=== PATIENT | female | born 1945 | race Caucasian/White ===

== ENCOUNTER 2017-06-28 09:06 | Day surgery (SDC) | payer MEDICARE, BC ==
[~2017-06-28 09:06] MED LIST: KETOROLAC TROMETHAMINE 0.45% 4 DROP/0.4 ML DROPERETTE OS PRN
[2017-06-28] MEDS ORDERED: CHONDR SU A NA/HYALUR INTRAOC KIT (SURGICARE) ONE (09:27)
[2017-06-28] MEDS ORDERED: LIDOCAINE 1% INJ-PF (10 MG/ML) 30 ML SDV ONE (09:27)
[2017-06-28] MEDS ORDERED: EPINEPHRINE INJ/PF 1 MG/1 ML AMPULE ONE (09:27)
[2017-06-28] MEDS: CYCLOPENTOLATE 0.2%/PHENYLEPHRINE 1% OPH SOLN 2 ML OS PRN ×3 (09:39→09:59)
[2017-06-28] MEDS: TROPICAMIDE 1% OPH SOLN 3 ML OS PRN ×3 (09:39→09:59)
[2017-06-28] MEDS: BESIFLOXACIN HCL 0.6% OPH SUSP 5 ML BOTTLE OS PRN ×4 (09:39→10:45)
[2017-06-28] MEDS: TETRACAINE HCL 0.5% OPH SOLN 2 ML OS PRN ×3 (09:40→10:15)
[2017-06-28] MEDS ORDERED: ALBUTEROL SULFATE 0.083% NEB 2.5 MG/3 ML AMPUL NEB ONE (09:42)
[2017-06-28] MEDS ORDERED: MIDAZOLAM 2 MG/2 ML INJ ONE (09:51)
--- NOTE | 2017-06-28 21:33 | [facility] OPERATIVE REPORT E ---
[facility] Operative Report NAME: SARABJIT HARTMANN AGE: 72Y DATE OF SURGERY: 06/28/2017 ROOM: PREOPERATIVE DIAGNOSIS: CATARACT, LEFT EYE. POSTOPERATIVE DIAGNOSIS: CATARACT, LEFT EYE. OPERATION: Cataract extraction with intraocular lens implant of the left eye. SURGEON: CALDERON ANTHONY M.D. ANESTHESIA: Topical. PROCEDURE: After obtaining appropriate consent, the patient's left eye was prepped and draped in sterile fashion as well as the surgeon in a sterile manner and cataract surgery was started. First a paracentesis blade was used to make a small side-port incision. Viscoelastic was used to inflate the anterior chamber. Next a 2.4 mm incision was made with the paracentesis blade. A continuous capsulorrhexis incision was made using a cystotome and Utrata forceps. Following this hydrodissection was carried out to make the lens fully loose and mobile and it was rotated 90 degrees. Following this, a rrffmn-sxl-xcpzuex technique was used to phacoemulsify the lens with a CDE of 7.33. The remaining cortex was removed with irrigation/aspiration. Provisc was instilled into the capsular bag to inflate the bag. A SN60WF, 19.5 diopter lens was placed. The remaining viscoelastic material was removed with irrigation/aspiration. Following this, a 10-0 nylon suture was used to close the incision and it was found to be watertight. Vigamox was instilled in the eye and a protective shield was placed over the eye. The patient returned to the postoperative recovery in stable condition. DICTATING PHYSICIAN: CALDERON ANTHONY M.D. [id number] PHY#: [id number] ID: [id number] JOB#: [id number] ACCT: [id number] cc:CALDERON ANTHONY M.D. >
--- NOTE | 2017-06-28 21:38 | DISCHARGE SUMMARY E ---
Discharge Summary NAME: SARABJIT HARTMANN : 1945 AGE: 72Y ADMITTED: 06/28/2017 DISCHARGED: HOSPITAL COURSE: This is a 72-year-old patient who underwent cataract extraction of the left eye. DIAGNOSIS: Cataract, left eye. The patient underwent surgery because she was having difficulty seeing road signs and words on the TV. DISCHARGE INSTRUCTIONS: The patient is to be on a regular diet. No bending at the waist, no heavy lifting. The patient should use the Besivance, Ilevro, and Durezol at 3 p.m. and 8 p.m. and sleep with a rigid shield. I will see the patient for a 1 day postoperative tomorrow. DICTATING PHYSICIAN: CALDERON ANTHONY M.D. [id number] PHY#: [id number] ID: [id number] JOB#: [id number] ACCT: [id number] cc:CALDERON ANTHONY M.D. >
== END 2017-06-28 11:30 | disposition home or self-care (01) ==
LOC: SC 09:06
PROVIDERS: ATTEND Internal Medicine
PROC: 08RK3JZ Replacement of Left Lens with Synthetic Substitute, Percutaneous Approach (ICD-10-PCS; principal; 2017-06-28 10:30)
DX: H25.13 Age-related nuclear cataract, bilateral (principal); E07.9 Disorder of thyroid, unspecified; Z79.899 Other long term (current) drug therapy; I10 Essential (primary) hypertension; Z79.82 Long term (current) use of aspirin
CPT/HCPCS: 66984; V2632; J2250; J3490 ×2; A9270 ×2; J0171; 142

== ENCOUNTER 2017-07-24 07:02 | Day surgery (SDC) | payer MEDICARE, BC ==
[~2017-07-24 07:02] MED LIST changes: +KETOROLAC TROMETHAMINE 0.45% 4 DROP/0.4 ML DROPERETTE OD PRN; -KETOROLAC TROMETHAMINE 0.45% 4 DROP/0.4 ML DROPERETTE OS PRN
[2017-07-24] MEDS ORDERED: EPINEPHRINE INJ/PF 1 MG/1 ML AMPULE ONE (07:37)
[2017-07-24] MEDS ORDERED: CHONDR SU A NA/HYALUR INTRAOC KIT (SURGICARE) ONE (07:37)
[2017-07-24] MEDS ORDERED: LIDOCAINE 1% INJ-PF (10 MG/ML) 30 ML SDV ONE (07:37)
[2017-07-24] MEDS: CYCLOPENTOLATE 0.2%/PHENYLEPHRINE 1% OPH SOLN 2 ML OD PRN ×3 (07:39→08:11)
[2017-07-24] MEDS: TROPICAMIDE 1% OPH SOLN 3 ML OD PRN ×3 (07:39→08:11)
[2017-07-24] MEDS: BESIFLOXACIN HCL 0.6% OPH SUSP 5 ML BOTTLE OD PRN ×3 (07:40→09:21)
[2017-07-24] MEDS: TETRACAINE HCL 0.5% OPH SOLN 2 ML OD PRN ×3 (07:41→08:45)
[2017-07-24] MEDS ORDERED: MIDAZOLAM 2 MG/2 ML INJ ONE ×2 (08:16→09:06)
[2017-07-24] MEDS ORDERED: FENTANYL CITRATE INJ/PF 100 MCG/2 ML AMPUL ONE (08:16)
--- NOTE | 2017-07-24 13:49 | [facility] OPERATIVE REPORT E ---
[facility] Operative Report NAME: SARABJIT HARTMANN AGE: 72Y DATE OF SURGERY: 07/24/2017 ROOM: PREOPERATIVE DIAGNOSIS: CATARACT, RIGHT EYE. POSTOPERATIVE DIAGNOSIS: CATARACT, RIGHT EYE. OPERATION: Cataract extraction with intraocular lens implant of the right eye. SURGEON: CALDERON ANTHONY M.D. ANESTHESIA: Topical. PROCEDURE: After obtaining appropriate consent, the patient's right eye was prepped and draped in sterile fashion as well as the surgeon in a sterile manner and cataract surgery was started. First a paracentesis blade was used to make a small side-port incision. Viscoelastic was used to inflate the anterior chamber. Next a 2.4 mm incision was made with the paracentesis blade. A continuous capsulorrhexis incision was made using a cystotome and Utrata forceps. Following this hydrodissection was carried out to make the lens fully loose and mobile and it was rotated 90 degrees. Following this, a nypkno-soc-olsfdyy technique was used to phacoemulsify the lens with a CDE of 7.52. The remaining cortex was removed with irrigation/aspiration. Provisc was instilled into the capsular bag to inflate the bag. A SN60WF, 19.0 diopter lens was placed. The remaining viscoelastic material was removed with irrigation/aspiration. Following this, a 10-0 nylon suture was used to close the incision and it was found to be watertight. Vigamox was instilled in the eye and a protective shield was placed over the eye. The patient returned to the postoperative recovery in stable condition. DICTATING PHYSICIAN: CALDERON ANTHONY M.D. 1209M [id number] PHY#: [id number] ID: [id number] JOB#: [id number] ACCT: [id number] cc:CALDERON ANTHONY M.D. >
--- NOTE | 2017-07-24 13:50 | [facility] DISCHARGE SUMMARY E ---
[facility] Discharge Summary NAME: SARABJIT HARTMANN AGE: 72Y ADMITTED: 07/24/2017 DISCHARGED: 07/24/2017 DIAGNOSIS: CATARACT, RIGHT EYE. SUMMARY: This is a 72-year-old female who underwent cataract extraction of the right eye. She underwent surgery because she was having trouble seeing words on the television. She should be on a regular diet, no bending at her waist, and no heavy lifting. She should use her Besivance, Ilevro and Durezol at 3 p.m. and 8 p.m. and sleep with a rigid shield. I will see her for her 1 day postoperative tomorrow. DICTATING PHYSICIAN: CALDERON ANTHONY M.D. [id number] PHY#: [id number] ID: [id number] JOB#: [id number] ACCT: [id number] cc:CALDERON ANTHONY M.D. >
== END 2017-07-24 10:03 | disposition home or self-care (01) ==
LOC: SC 07:02
PROVIDERS: ATTEND Internal Medicine
PROC: 08RJ3JZ Replacement of Right Lens with Synthetic Substitute, Percutaneous Approach (ICD-10-PCS; principal; 2017-07-24 08:30)
DX: H25.11 Age-related nuclear cataract, right eye (principal); Z96.1 Presence of intraocular lens; H40.89 Other specified glaucoma; I10 Essential (primary) hypertension; R00.0 Tachycardia, unspecified; E07.9 Disorder of thyroid, unspecified; Z79.82 Long term (current) use of aspirin; Z79.899 Other long term (current) drug therapy
CPT/HCPCS: 66984; V2632; J2250; J3490 ×2; A9270; J0171; J3010; 142

== ENCOUNTER 2017-08-28 14:43 | Inpatient (IN) | payer MEDICARE, BC ==
[2017-08-28 15:04] LABS: ABSOLUTE BASOPHILS # (AUTO) 0.1 10^3/uL (0.0-0.2); ABSOLUTE EOSINOPHILS # (AUTO) 0.1 10^3/uL (0.0-0.6); ABSOLUTE LYMPHOCYTES (AUTO) 1.8 10^3/uL (0.5-4.7); ABSOLUTE MONOCYTES (AUTO) 0.6 10^3/uL (0.1-1.4); ABSOLUTE NEUT (AUTO) 6.6 10^3/uL (1.7-8.2); BASOPHILS % (AUTO) 0.8 % (0-2); EOSINOPHILS % (AUTO) 0.9 % (0-6); HEMATOCRIT 39.3 % (36.0-47.0); HEMOGLOBIN 13.5 g/dL (12.0-15.5); LYMPHOCYTES % (AUTO) 19.6 % (13-45); MEAN CORPUSCULAR HEMOGLOBIN 31.9 pg (27.0-33.4); MEAN CORPUSCULAR HGB CONC 34.4 g/dL (32.0-36.0); MEAN CORPUSCULAR VOLUME 93 fl (80-97); MONOCYTES % (AUTO) 6.9 % (3-13); PLATELET COUNT 201 10^3/uL (150-450); RED BLOOD COUNT 4.24 10^6/uL (3.72-5.28); RED CELL DISTRIBUTION WIDTH 13.6 % (11.5-14.0); SEGMENTED NEUTROPHILS % (AUTO) 71.8 % (42-78); TOTAL CELLS COUNTED % (AUTO) 100 %; WHITE BLOOD COUNT 9.2 10^3/uL (4.0-10.5)
[2017-08-28] MEDS ORDERED: NORMAL SALINE 500 ML IV ONE (15:08)
[2017-08-28 15:17] LABS: ALANINE AMINOTRANSFERASE 22 U/L (9-52); ALBUMIN 3.9 g/dL (3.5-5.0); ALKALINE PHOSPHATASE 71 U/L (38-126); ANION GAP 16 (5-19); ASPARTATE AMINO TRANSFERASE 41 U/L (14-36); BILIRUBIN,DIRECT 0.3 mg/dL (0.0-0.4); BILIRUBIN,TOTAL 0.7 mg/dL (0.2-1.3); BLOOD UREA NITROGEN 11 mg/dL (7-20); CALCIUM 8.8 mg/dL (8.4-10.2); CARBON DIOXIDE 21 mmol/L (22-30); CHLORIDE 107 mmol/L (98-107); CREATINE KINASE 57 U/L (30-135); GLUCOSE 124 mg/dL (75-110); POTASSIUM 4.1 mmol/L (3.6-5.0); SODIUM 143.6 mmol/L (137-145)
--- NOTE | 2017-08-28 15:17 | RADIOLOGY REPORT (SQ) ---
EXAM DESCRIPTION: CHEST SINGLE VIEW COMPLETED DATE/TIME: 08/28/2017 3:08 pm REASON FOR STUDY: cp COMPARISON: CT chest 01/15/2015 EXAM PARAMETERS: NUMBER OF VIEWS: One view. TECHNIQUE: Single frontal radiographic view of the chest acquired. RADIATION DOSE: NA LIMITATIONS: None. FINDINGS: LUNGS AND PLEURA: Pulmonary vascular congestion with diffuse Agnes lines from interstitia l edema. No pleural effusion. No pneumothorax. No dense consolidation worrisome for pneumonia. MEDIASTINUM AND HILAR STRUCTURES: No masses. Contour normal. HEART AND VASCULAR STRUCTURES: Mild cardiomegaly BONES: No acute findings. HARDWARE: None in the chest. OTHER: No other significant finding. IMPRESSION: Interstitial pulmonary edema TECHNICAL DOCUMENTATION: JOB ID: [id number] [employer]- All Rights Reserved Reading location - IP/workstation name: [email or web address]
[2017-08-28] MEDS ORDERED: FENTANYL CITRATE INJ/PF 100 MCG/2 ML AMPUL IV ONE (15:18)
[2017-08-28] MEDS ORDERED: MIDAZOLAM 2 MG/2 ML INJ IV ONE (15:18)
[2017-08-28] MEDS ORDERED: FUROSEMIDE INJ/PF 40 MG/4 ML SDV IV ONE (15:24)
[2017-08-28 15:28] LABS: CREATINE KINASE MB 1.61 ng/mL (<4.55)
--- NOTE | 2017-08-28 15:29 | ER Document Report ---
ED Cardiac - General Chief Complaint: Irregular Pulse Stated Complaint: HEART PALPITATIONS Time Seen by Provider: 08/28/17 15:06 Notes: The patient is a 72-year-old female, past medical history A. fib, hypothyroidism , presents with 2 hours of feeling her heart racing with some shortness of breath. She started to have a wet cough while in the ambulance. EMS provided her with 10 mg Cardizem and her heart rate dropped from 130-180's to 110-150's. Patient takes 25 mg metoprolol daily. She denies chest pain, leg swelling, syncope, nausea, vomiting, back pain, abdominal pain, fevers or hemoptysis. TRAVEL OUTSIDE OF THE [place] IN LAST 30 DAYS: No - Related Data Allergies/Adverse Reactions: No Known Allergies Allergy (Verified 08/28/17 15:12) Past Medical History - General Information source: Patient - Social History Smoking Status: Never Smoker Frequency of alcohol use: None Drug Abuse: None Family History: Reviewed & Not Pertinent Patient has suicidal ideation: No Patient has homicidal ideation: No - Past Medical History Cardiac Medical History: Reports: Hx Atrial Fibrillation Denies: Hx Coronary Artery Disease, Hx Heart Attack, Hx Hypertension Pulmonary Medical History: Denies: Hx Asthma, Hx Bronchitis, Hx COPD, Hx Pneumonia Neurological Medical History: Denies: Hx Cerebrovascular Accident, Hx Seizures Renal/ Medical History: Denies: Hx Peritoneal Dialysis GI Medical History: Denies: Hx Hepatitis, Hx Hiatal Hernia, Hx Ulcer Musculoskeltal Medical History: Denies Hx Arthritis Infectious Medical History: Denies: Hx Hepatitis Past Surgical History: Denies: Hx Hysterectomy, Hx Mastectomy, Hx Open Heart Surgery, Hx Pacemaker - Immunizations Immunizations up to date: Yes Hx Diphtheria, Pertussis, Tetanus Vaccination: Yes - unsure Review of Systems - Review of Systems Notes: REVIEW OF SYSTEMS: CONSTITUTIONAL: -fevers, -chills EENT: -eye pain, -difficulty swallowing, -nasal congestion CARDIOVASCULAR: -chest pain, -syncope, +palpitations RESPIRATORY: -cough, +SOB GASTROINTESTINAL: -abdominal pain, -nausea, -vomiting, -diarrhea GENITOURINARY: -dysuria, -hematuria MUSCULOSKELETAL: -back pain, -neck pain SKIN: -rash or skin lesions. HEMATOLOGIC: -easy bruising or bleeding. LYMPHATIC: -swollen, enlarged glands. NEUROLOGICAL: -altered mental status or loss of consciousness, -headache, - neurologic symptoms PSYCHIATRIC: -anxiety, -depression. ALL OTHER SYSTEMS REVIEWED AND NEGATIVE. Physical Exam - Vital signs Vitals: Pulse Ox 95 08/28/17 14:44 - Notes Notes: PHYSICAL EXAMINATION: GENERAL: Well-appearing, well-nourished and in no acute distress. HEAD: Atraumatic, normocephalic. EYES: Pupils equal round and reactive to light, extraocular movements intact, sclera anicteric, conjunctiva are normal. ENT: nares patent, oropharynx clear without exudates. Moist mucous membranes. NECK: Normal range of motion, supple without lymphadenopathy LUNGS: Mild tachypnea. Diffuse rales. HEART: Irregularly irregular rhythm. ABDOMEN: Soft, nontender, normoactive bowel sounds. No guarding, no rebound. No masses appreciated. EXTREMITIES: Normal range of motion, no pitting or edema. No cyanosis. NEUROLOGICAL: Cranial nerves grossly intact. Normal speech, normal gait. Normal sensory and motor exams. PSYCH: Normal mood, normal affect. SKIN: Warm, Dry, normal turgor, no rashes or lesions noted. Course - Re-evaluation Re-evalutation: Pt seen and found to be in A fib w/ RVR. She was slightly hypotensive (90's/50's ) and has evidence of heart failure with pulmonary vascular congestion (no history of CHF). Due to her hypotension and pulmonary vascular congestion with 2 hours of A fib w/ RVR, she was verbally consented for cardioversion. She was successfully synchronized cardioverted with 120 J into normal sinus rhythm and her blood pressure increased and heart rate was in the 60s-80s. Patient is not on any blood thinners. Her CHADs2-Vasc score is 2, which indicates a 2.2% of a yearly stroke. Pt satting 90% on room air, which increased to 100% on 2L oxygen (not on any oxygen at home). Pt also mildly hyperthyroid and she takes Synthroid. This should probably be decreased. Patient's first troponin is 0.05 , nut the patient is not having any chest pain and suspect this is demand ischemia from her rapid A. fib. No STEMI on EKG. Will continue to monitor. Patient requires admission due to the flash pulmonary edema, hypoxia and further evaluation and treatment of her A. fib and decision to anticoagulate. 08/28/17 16:[address] Shayna Ann (Hospitalist) and she has accepted patient to [facility] as Inpatient. - Vital Signs Vital signs: Temp Pulse Resp BP Pulse Ox 97.9 F 88 24 H 97/57 L 96 08/28/17 22:47 08/28/17 22:47 08/28/17 23:01 08/28/17 23:00 08/28/17 23:01 - Laboratory Result Diagrams: 08/28/17 14:52 08/28/17 14:52 Laboratory results interpreted by me: 08/28/17 08/28/17 08/28/17 14:52 14:52 14:52 Carbon Dioxide 21 L Glucose 124 H AST 41 H NT-Pro-B Natriuret Pep 1920 H Free T3 pg/mL 6.13 H - Diagnostic Test Radiology reviewed: Image reviewed, Reports reviewed Radiology results interpreted by me: CXR: Pulmonary vascular congestion - EKG Interpretation by Me Rate: Tachycardia Rhythm: A.Fib Voltage: Consistant with LVH When compared to previous EKG there are: Previous EKG unavailable Procedures - Additional Procedures Cardioversion/Defib Time performed: 15:35 Additional Procedures: Cardioversion/defib Notes: After verbal consent obtained from patient, she was sedated with Versed and fentanyl. Patient was synchronized cardioverted with 120 J with conversion of A fib. w/ RVR to NSR. Critical Care Note - Critical Care Note Total time excluding time spent on procedures (mins): 35 Discharge - Discharge Clinical Impression: Atrial fibrillation with RVR, Hypoxia Pulmonary edema Qualifiers: Chronicity: acute Qualified Code(s): J81.0 - Acute pulmonary edema Condition: Stable Disposition: ADMITTED INPATIENT Admitting Provider: Hospitalist - Marissa Unit Admitted: [facility]
[2017-08-28 15:38] LABS: TROPONIN I 0.053 ng/mL
[2017-08-28] MEDS ORDERED: ASPIRIN 325 MG TABLET PO ONE (15:42)
[2017-08-28 15:51] LABS: FREE T3 6.13 pg/mL (2.77-5.27); FREE T4 (FREE THYROXINE) 1.84 ng/dL (0.78-2.19)
[2017-08-28 16:05] LABS: THYROID STIMULATING HORMONE 1.49 uIU/mL (0.47-4.68)
[2017-08-28] MEDS ORDERED: ACETAMINOPHEN 325 MG TABLET PO PRN (17:33)
[2017-08-28] MEDS ORDERED: ONDANSETRON 4 MG TAB.RAPDIS PO PRN (17:33)
[2017-08-28] MEDS ORDERED: LEVALBUTEROL HCL NEB 0.63 MG/3 ML AMPUL NEB PRN (17:33)
[2017-08-28] MEDS ORDERED: FUROSEMIDE INJ/PF 20 MG/2 ML SDV IV SCH (18:00)
--- NOTE | 2017-08-28 18:02 | PDOC H&P ---
History of Present Illness Admission Date/PCP: 08/28/17 17:20 No PCP She has seen Dr. Schulz (Cardiology) in the past Patient complains of: Palpitations shortness of breath History of Present Illness: SARABJIT HARTMANN is a 72 year old female past medical history of Atrial fibrillation Hypothyroidism He does not have a primary care physician at present. She has seen Dr. Schulz from the [facility] in the past. This afternoon she was in the house walking around dusting some furniture when she suddenly developed palpitations and shortness of breath. She did not experience any chest pain or presyncope. Her heart rate was found to be in the 130s-180s by EMS and she received 10 mg of IV Cardizem. In the emergency room chest x-ray showed pulmonary edema and she was given 40 mg of IV Lasix. She subsequently converted to sinus rhythm. Heart rate now is in the 60s. Blood pressure 114/69. Outpatient medications: Metoprolol XL 25 mg daily Synthroid 100 mcg p.o. daily Aspirin 81 mg daily Multivitamin daily Vitamin D No recent illness or change in medications. Past Medical History Cardiac Medical History: Reports: Atrial Fibrillation Denies: Coronary Artery Disease, Myocardial Infarction, Hypertension Pulmonary Medical History: Denies: Asthma, Bronchitis, Chronic Obstructive Pulmonary Disease (COPD), Pneumonia Neurological Medical History: Denies: Ischemic CVA, Seizures Endocrine Medical History: Denies: Diabetes Mellitus Type 2 Social History Information Source: Patient Smoking Status: Never Smoker Frequency of Alcohol Use: None Drugs: None - Advance Directive Resuscitation Status: Full Code Family History Family History: CAD, Malignancy Parental Family History Reviewed: Yes Children Family History Reviewed: Yes Sibling(s) Family History Reviewed.: Yes Medication/Allergy Home Medications: Aspirin [Aspirin EC] 81 mg PO DAILY 08/28/17 Levothyroxine Sodium 100 mcg PO DAILY 08/28/17 Metoprolol Succinate 25 mg PO DAILY 08/28/17 Allergies/Adverse Reactions: No Known Allergies Allergy (Verified 08/28/17 15:12) Review of Systems Constitutional: ABSENT: fever(s) Eyes: ABSENT: visual disturbances Nose, Mouth, and Throat: ABSENT: sore throat Cardiovascular: PRESENT: dyspnea on exertion, palpitations. ABSENT: chest pain , edema Respiratory: ABSENT: cough, hemoptysis Gastrointestinal: ABSENT: abdominal pain, diarrhea, vomiting Genitourinary: ABSENT: dysuria Musculoskeletal: ABSENT: joint swelling Integumentary: ABSENT: pruritus Neurological: ABSENT: focal weakness Psychiatric: ABSENT: hallucinations Endocrine: ABSENT: heat intolerance Hematologic/Lymphatic: ABSENT: easy bleeding Physical Exam Vital Signs: Temp Pulse Resp BP Pulse Ox 98.0 F 140 H 19 103/78 96 08/28/17 14:54 08/28/17 15:35 08/28/17 17:31 08/28/17 17:31 08/28/17 17:31 Intake & Output 08/27/17 08/28/17 08/29/17 06:59 06:59 06:59 Output Total 300 Balance -300 General appearance: PRESENT: no acute distress Head exam: PRESENT: normocephalic Eye exam: PRESENT: PERRLA. ABSENT: scleral icterus Ear exam: PRESENT: normal external ear exam Mouth exam: PRESENT: moist Respiratory exam: PRESENT: clear to auscultation linus, symmetrical. ABSENT: accessory muscle use Cardiovascular exam: PRESENT: RRR GI/Abdominal exam: PRESENT: normal bowel sounds, soft. ABSENT: tenderness Rectal exam: PRESENT: deferred Extremities exam: ABSENT: pedal edema Neurological exam: PRESENT: alert, awake, oriented to person, oriented to place , oriented to time, oriented to situation Psychiatric exam: PRESENT: appropriate affect Skin exam: ABSENT: rash Results Impressions: Chest X-Ray 08/28/17 14:45 IMPRESSION: Interstitial pulmonary edema Assessment & Plan - Diagnosis (1) Atrial fibrillation with RVR Is this a current diagnosis for this admission?: Yes Plan: Reverted to NSR after IV Cardizem. Continue Metoprolol and Aspirin. She will need close outpatient Cardiology follow up as well. (2) Pulmonary edema Qualifiers: Chronicity: acute Qualified Code(s): J81.0 - Acute pulmonary edema Is this a current diagnosis for this admission?: Yes Plan: Lasix, monitor intake and output, monitor renal function. Check Echocardiogram. Suspect acute diastolic CHF exacerbation. (3) Hypothyroidism Is this a current diagnosis for this admission?: Yes Plan: Synthroid, TSH normal - Time Time Spent: 50 to 70 Minutes - Inpatient Certification Medical Necessity: Need For Continuous Telemetry Monitoring, Risk of Complication if Not Cared For in Hospital
--- NOTE | 2017-08-28 18:50 | EKG REPORT ---
SEVERITY:- ABNORMAL ECG - SINUS RHYTHM LEFT ATRIAL ABNORMALITY LVH WITH SECONDARY REPOLARIZATION ABNORMALITY ANTERIOR INFARCT, AGE INDETERMINATE BORDERLINE PROLONGED QT INTERVAL SUSPECT ACCESSORY PATHWAY (PRE-EXCITATION).. : Confirmed by: Peewee Boss MD 28-Aug-2017 18:49:55
--- NOTE | 2017-08-28 18:53 | EKG REPORT ---
SEVERITY:- ABNORMAL ECG - ATRIAL FIBRILLATION LVH WITH SECONDARY REPOLARIZATION ABNORMALITY ANTERIOR Q WAVES, POSSIBLY DUE TO LVH ABNORMAL T, PROBABLE ISCHEMIA, LATERAL LEADS BORDERLINE PROLONGED QT INTERVAL : Confirmed by: Peewee Boss MD 28-Aug-2017 18:53:06
[2017-08-28] MEDS ORDERED: LEVOTHYROXINE SODIUM 0.1 MG TABLET PO ONE (19:30)
[2017-08-28] MEDS: MAGNESIUM SULFATE/D5W 1 GM/100 ML RTUPB IV SCH ×3 (19:42→21:44)
[2017-08-28] MEDS ORDERED: ENOXAPARIN SODIUM INJ 40 MG/0.4 ML DISP.SYRIN SUBCUT ONE (23:00)
[2017-08-29 06:04] LABS: HEMATOCRIT 37.3 % (36.0-47.0); MEAN CORPUSCULAR VOLUME 92 fl (80-97); PLATELET COUNT 184 10^3/uL (150-450); RED BLOOD COUNT 4.07 10^6/uL (3.72-5.28); RED CELL DISTRIBUTION WIDTH 13.7 % (11.5-14.0); WHITE BLOOD COUNT 7.8 10^3/uL (4.0-10.5)
[2017-08-29 06:20] LABS: INTERNATIONAL RATION (INR) 0.99; PROTHROMBIN TIME 13.6 SEC (11.4-15.4)
[2017-08-29 06:31] LABS: ALANINE AMINOTRANSFERASE 27 U/L (9-52); ALBUMIN 3.6 g/dL (3.5-5.0); ALKALINE PHOSPHATASE 52 U/L (38-126); ANION GAP 11 (5-19); ASPARTATE AMINO TRANSFERASE 48 U/L (14-36); BILIRUBIN,DIRECT 0.2 mg/dL (0.0-0.4); BILIRUBIN,TOTAL 0.5 mg/dL (0.2-1.3); BLOOD UREA NITROGEN 15 mg/dL (7-20); CARBON DIOXIDE 27 mmol/L (22-30); CHLORIDE 105 mmol/L (98-107); CHOLESTEROL 217.19 mg/dL (0-200); GLUCOSE 104 mg/dL (75-110); PHOSPHORUS 4.1 mg/dL (2.5-4.5); POTASSIUM 3.8 mmol/L (3.6-5.0); SODIUM 142.6 mmol/L (137-145); TOTAL PROTEIN 6.7 g/dL (6.3-8.2); TRIGLYCERIDES 71 mg/dL (<150)
[2017-08-29 06:42] LABS: DIRECT LDL 140 mg/dL (<100)
[2017-08-29] MEDS: ENOXAPARIN SODIUM INJ 80 MG/0.8 ML DISP.SYRIN SUBCUT SCH ×2 (09:46→22:13)
[2017-08-29] MEDS: ASPIRIN 81 MG TABLET, ENT COATED PO SCH (09:46)
[2017-08-29] MEDS ORDERED: METOPROLOL SUCCINATE 25 MG TAB.SR.24H PO SCH (10:00)
[2017-08-29] MEDS ORDERED: ENOXAPARIN SODIUM INJ 40 MG/0.4 ML DISP.SYRIN SUBCUT SCH (10:00)
--- NOTE | 2017-08-29 11:27 | XCELERA REPORT ---
[address] [address] Transthoracic Echocardiogram Report Name: SARABJIT HARTMANN Age: 72 yrs Gender: Female : 1945 Patient Status: Inpatient Patient Location: [address] [place] [address] Study Date: 08/29/2017 09:46 AM Height: 63 in Weight: 168 lb BSA: 1.8 m2 Procedure: A complete two-dimensional transthoracic echocardiogram was performed (2D, M-mode, spectral and color flow Doppler). The study was technically adequate with some images being suboptimal in quality. Reason For Study: NSTEMI Ordering Physician: AB WISEMAN Performed By: Celina Guzman Interpretation Summary The left ventricle is hyperdynamic. The left ventricular cavity is small. There is moderate concentric left ventricular hypertrophy. Doppler measurements suggest pseudonormalized left ventricular relaxation, which is associated with grade II/IV or mild to moderate diastolic dysfunction Wall motion cannot be accurately commented on, but no definite regional wall motion abnormalities noted. The ventricular septal defect is small. Color flow Doppler is consistent with a ventricular septal defect with left to right shunt flow. The right ventricle is grossly normal size. The right ventricular systolic function is normal. The right atrium is normal in size The left atrium is mildly dilated. There is no mitral valve stenosis. There is a mild to moderate amount of mitral regurgitation There is mild aortic stenosis There is moderate LVOT obstruction. No aortic regurgitation is present. There is a mild amount of tricuspid regurgitation There is mild to moderate pulmonary hypertension by echo Right ventricular systolic pressure is estimated to be elevated at 40- 50mmHg. Minimal pericardial effusion. MMode/2D Measurements & Calculations RVDd: 2.5 cm LVIDd: 3.2 cm FS: 39.6 % Ao root diam: 2.3 cm IVSd: 1.5 cm LVIDs: 2.0 cm EDV(Teich): 42.0 ml LVPWd: 1.5 cm ESV(Teich): 12.0 ml Ao root area: 4.0 cm2 EF(Teich): 71.5 % LA dimension: 4.3 cm LVOT diam: 2.0 cm LVOT area: 3.1 cm2 Doppler Measurements & Calculations MV E max moiz: MV V2 max: MV P1/2t max moiz: Ao V2 max: 189.4 cm/sec 194.1 cm/sec 190.0 cm/sec 434.4 cm/sec MV A max moiz: MV max PG: MV P1/2t: 86.2 msec Ao max P.0 cm/sec 15.1 mmHg MVA(P1/2t): 2.6 cm2 75.5 mmHg MV E/A: 1.0 MV V2 mean: MV dec slope: Ao V2 mean: 147.7 cm/sec 646.0 cm/sec2 272.4 cm/sec MV mean PG: Ao mean P.5 mmHg 37.4 mmHg MV V2 VTI: Ao V2 VTI: 59.8 cm 75.8 cm MVA(VTI): 2.6 cm2 AMERICA(I,D): 2.1 cm2 AMERICA(V,D): 2.2 cm2 LV V1 max PG: SV(LVOT): PA V2 max: TR max moiz: 38.2 mmHg 158.1 ml 111.1 cm/sec 335.3 cm/sec LV V1 mean PG: PA max P.9 mmHg TR max P.4 mmHg 45.0 mmHg LV V1 max: 309.0 cm/sec LV V1 mean: 214.9 cm/sec LV V1 VTI: 50.7 cm Left Ventricle There is moderate concentric left ventricular hypertrophy. The left ventricular cavity is small. The left ventricle is hyperdynamic. Doppler measurements suggest pseudonormalized left ventricular relaxation, which is associated with grade II/IV or mild to moderate diastolic dysfunction. Wall motion cannot be accurately commented on, but no definite regional wall motion abnormalities noted. The ventricular septal defect is small. Color flow Doppler is consistent with a ventricular septal defect with left to right shunt flow. Right Ventricle The right ventricle is grossly normal size. There is normal right ventricular wall thickness. The right ventricular systolic function is normal. Atria The right atrium is normal in size. The left atrium is mildly dilated. Interarterial septum not well visualized and not well dopplered. Cannot comment on ASD/PFO presence. Mitral Valve The mitral valve leaflets are sclerotic, but show no functional abnormalities. There is no mitral valve stenosis. There is a mild to moderate amount of mitral regurgitation. Aortic Valve The aortic valve is not well visualized secondary to technical limitations. There is moderate LVOT obstruction. There is mild aortic stenosis. No aortic regurgitation is present. Tricuspid Valve The tricuspid valve is not well visualized, but is grossly normal. There is no tricuspid stenosis. There is mild to moderate pulmonary hypertension by echo. Right ventricular systolic pressure is estimated to be elevated at 40-50mmHg. There is a mild amount of tricuspid regurgitation. Pulmonic Valve The pulmonic valve is not well visualized. Great Vessels The aortic root is not well visualized but is probably normal size. The inferior vena cava appeared normal and decreased > 50% with respiration (RAP 5-10 mmHg). Effusions Minimal pericardial effusion. : AB WISEMAN > Ab Wiseman
[2017-08-29] MEDS ORDERED: AMIODARONE HCL 200 MG TABLET PO ONE (11:45)
--- NOTE | 2017-08-29 12:56 | PDOC CONSULTATION ---
Consultation Consult Date: 08/28/17 Attending physician:: BRISEIDA COBB Consult reason:: SVT History of Present Illness Admission Date/PCP: 08/28/17 17:33 Patient complains of: Palpitations and shortness of breath History of Present Illness: SARABJIT HARTMANN is a 72 year old female past medical history A. fib, hypothyroidism, presents with 2 hours of feeling her heart racing with some shortness of breath. She started to have a wet cough while in the ambulance. EMS provided her with 10 mg Cardizem and her heart rate dropped from 130-180's to 110-150's. Patient takes 25 mg metoprolol daily. She denies chest pain, leg swelling, syncope, nausea, vomiting, back pain, abdominal pain, fevers or hemoptysis. Subsequently however patient was noted to become hypotensive and short of breath. Chest x-ray confirmed pulmonary edema. The ER physician did a synchronized cardioversion with 120 J with conversion to sinus rhythm. Following which her blood pressure improved and patient felt symptomatically better. Patient was subsequently admitted. Patient was then noted to have positive troponin I elevation. I been asked to help with management because of atrial fibrillation. Patient does have a history of hypertrophic cardiomyopathy. Past Medical History Cardiac Medical History: Reports: Atrial Fibrillation Denies: Coronary Artery Disease, Myocardial Infarction, Hypertension Pulmonary Medical History: Denies: Asthma, Bronchitis, Chronic Obstructive Pulmonary Disease (COPD), Pneumonia Neurological Medical History: Denies: Ischemic CVA, Seizures Endocrine Medical History: Denies: Diabetes Mellitus Type 2 GI Medical History: Denies: Hepatitis, Hiatal Hernia Musculoskeltal Medical History: Denies: Arthritis Hematology: Reports: Anemia - YRS AGO Past Surgical History Past Surgical History: Denies: Hysterectomy, Mastectomy, Pacemaker Social History Smoking Status: Never Smoker Frequency of Alcohol Use: None Drugs: None - Advance Directive Resuscitation Status: Full Code Family History Family History: CAD, Malignancy Parental Family History Reviewed: Yes Children Family History Reviewed: Yes Sibling(s) Family History Reviewed.: Yes Medication/Allergy Home Medications: Aspirin [Ecotrin 81 mg EC Tablet] 81 mg PO DAILY 08/28/17 Levothyroxine Sodium [Synthroid] 100 mcg PO Q6AM 08/28/17 Metoprolol Succinate [Toprol Xl 25 mg Tab.sr] 25 mg PO DAILY 08/28/17 Allergies/Adverse Reactions: No Known Allergies Allergy (Verified 08/28/17 15:12) Physical Exam Vital Signs: Temp Pulse Resp BP Pulse Ox 97.9 F 88 23 H 92/52 L 98 08/28/17 22:47 08/28/17 22:47 08/28/17 22:47 08/28/17 22:47 08/28/17 22:47 Intake & Output 08/27/17 08/28/17 08/29/17 06:59 06:59 06:59 Output Total 1300 Balance -1300 Exam: GENERAL: well-nourished and in no acute distress. Alert and oriented x3 HEAD: Atraumatic, normocephalic. EYES: Pupils equal round and reactive to light, extraocular movements intact, sclera anicteric, conjunctiva are normal. ENT: TMs normal, nares patent, oropharynx clear without exudates. Moist mucous membranes. No oral ulcerations or bleeding gums noted NECK: supple without lymphadenopathy. Trachea is central. No cervical or axillary lymphadenopathy noted. Carotids are 2+, JVD WNL LUNGS: Respiration seems nonlabored, no significant accessory muscle action noted. Breath sounds clear to auscultation bilaterally and equal noted. No wheezes rales or rhonchi noted. No significant dullness noted on percussion. CHEST: Palpation of the chest wall shows no significant chest wall tenderness. HEART: [place] [employer], No PSH, 2/6 BLAIR aortic area and LSB, 1/6 cornelius systolic murmur mitral area, no rubs, no gallops. ABDOMEN: Soft, no significant tenderness appreciated, normoactive bowel sounds. No guarding, no rebound. No rigidity noted . No masses appreciated. EXTREMITIES: Pedal pulses are 1-2+, no calf tenderness noted. No clubbing or cyanosis. negative pedal edema noted NEUROLOGICAL: Focused neurological exam showed no significant neurologic deficit. Normal speech, no focal weakness appreciated. PSYCH: Normal mood, normal affect. Judgment and insight within normal limits. SKIN: No significant ecchymosis, skin is noted to be warm. MUSCULOSKELETAL EXAM: No significant acute joint swelling noted. Results Laboratory Results: 08/28/17 18:20 Troponin I 1.310 EKG Comments: Atrial fibrillation with rapid ventricular response. ST T changes indicative of LVH. Impressions: Chest X-Ray 08/28/17 14:45 IMPRESSION: Interstitial pulmonary edema Assessment & Plan - Diagnosis (1) Atrial fibrillation with RVR Is this a current diagnosis for this admission?: Yes (2) Hypoxia Is this a current diagnosis for this admission?: Yes (3) Pulmonary edema Qualifiers: Chronicity: acute Qualified Code(s): J81.0 - Acute pulmonary edema Is this a current diagnosis for this admission?: Yes (4) Non-STEMI (non-ST elevated myocardial infarction) Is this a current diagnosis for this admission?: Yes (5) Elevated troponin I level Is this a current diagnosis for this admission?: Yes - Notes Notes: Atrial fibrillation with RVR: Patient presented with rapid heartbeat for 2 hours and subsequently decompensated needing to be cardioverted in the emergency room. She was noted to become hypotensive, hypoxic with flash pulmonary edema. Following cardioversion she was noted to be stable and admitted. Patient being anticoagulated. Patient placed on beta-shantel therapy. Hypoxemia: Most likely related to pulmonary edema. Currently on oxygen supplementation. Pulmonary edema: Most likely related to atrial fibrillation in setting of diastolic dysfunction. Patient gives history of hypertrophy of the heart muscles. Non-STEMI: Most likely related to supply demand mismatch and possibly related to marked increased LVEDP. Currently chest pain-free. In fact patient never had any chest pain. At this point agree with Lovenox therapy. Will gradually optimize beta-shantel therapy. May consider Ranexa therapy. Elevated troponin I: Most likely related to supply demand mismatch. - Time Time Spent: 50 to 70 Minutes - CODE STATUS was discussed, patient remains full code. Surrogate decision-maker patient's . Multiple medical problems were addressed. More than 50% of the time spent coordinating care, discussing management plans with involved caregivers. Management plans discussed with involved personnels. Medical decision making was of moderate to high complexity , patient's has multiple comorbidities. Medications reviewed and adjusted accordingly: Yes
--- NOTE | 2017-08-29 13:01 | PDOC TRANSFER SUMMARY ---
General Admission Date/PCP: 08/28/17 17:33 Admission Date: 08/28/17 Transfer Date: 08/29/17 Accepting Facility: [facility] Resuscitation Status: Full Code - Transfer Diagnosis (1) Atrial fibrillation with RVR Is this a current diagnosis for this admission?: Yes (2) Elevated troponin I level Is this a current diagnosis for this admission?: Yes (3) Hypertrophic cardiomyopathy Is this a current diagnosis for this admission?: Yes (4) Hypothyroidism Is this a current diagnosis for this admission?: Yes (5) Hypoxia Is this a current diagnosis for this admission?: Yes (6) Left ventricular outflow tract obstruction Is this a current diagnosis for this admission?: Yes (7) Non-STEMI (non-ST elevated myocardial infarction) Is this a current diagnosis for this admission?: Yes (8) Pulmonary edema Is this a current diagnosis for this admission?: Yes - Transfer Medications Home Medications: Aspirin [Ecotrin 81 mg EC Tablet] 81 mg PO DAILY 08/28/17 Levothyroxine Sodium [Synthroid] 100 mcg PO Q6AM 08/28/17 Transfer Medications: Current Medications Acetaminophen (Tylenol 325 Mg Tablet) 325 mg PO Q4HP PRN PRN Reason: FOR PAIN Stop: 09/27/17 17:32 Amiodarone HCl (Cordarone 200 Mg Tablet) 400 mg PO Q12 [facility] Stop: 09/28/17 21:59 Aspirin (Ecotrin 81 Mg Ec Tablet) 81 mg PO DAILY [facility] Stop: 09/28/17 09:59 Last Admin: 08/29/17 09:46 Dose: 81 mg Atorvastatin Calcium (Lipitor 40 Mg Tablet) 40 mg PO QHS [facility] Stop: 09/28/17 21:59 Enoxaparin Sodium (Lovenox Inj 80 Mg/0.8 Ml Disp.Syrin) 80 mg SUBCUT Q12 [facility] Stop: 09/28/17 09:59 Last Admin: 08/29/17 09:46 Dose: 80 mg Levalbuterol HCl (Xopenex Neb 0.63 Mg/3 Ml Ampul) 0.63 mg NEB RTQ4HP PRN PRN Reason: SHORTNESS OF BREATH Stop: 09/27/17 17:32 Levothyroxine Sodium (Synthroid 0.1 Mg Tablet) 0.1 mg PO Q6AM [facility] Stop: 09/28/17 12:59 Metoprolol Succinate (Toprol Xl 25 Mg Tab.Sr) 25 mg PO Q12 [facility] Stop: 09/28/17 21:59 Ondansetron HCl (Zofran Odt 4 Mg Tablet) 4 mg PO Q4HP PRN PRN Reason: FOR NAUSEA/VOMITING Stop: 09/27/17 17:32 - Allergies Allergies/Adverse Reactions: No Known Allergies Allergy (Verified 08/28/17 15:12) - Diet/Activity Discharge Diet: Cardiac Hospital Course Hospital Course: This 72-year-old female was admitted with newly discovered atrial fibrillation as well as a history of hypothyroidism. She was found to be with a heart rate of 130s-180s by EMS and was treated with 10 mg of IV Cardizem. She did spontaneously convert it appears shortly after that with no further medications. She was also thought to be in decompensated CHF and received Lasix for diuresis. She was seen by data center technician and patient does of metoprolol was adjusted. Patient did have an echocardiogram done today. It appears she has a moderate concentric left ventricular hypertrophy with significant outflow obstruction. Echo also reveals a small ventricular septal defect with left to right shunt flow. There is also mild to moderate pulmonary hypertension and tricuspid regurgitation. After further evaluation by the data center technician it is felt that patient will benefit from electrophysiology study and so she has been transferred to provide and for further management. All arrangements including discussion with transfer center and data center technician were made by Dr. Guidry. Troponins have also been elevated with a peak of 1.3. BNP is also elevated at 4430. It is felt the patient will benefit most from a transfer to a tertiary center as so patient is being transferred to a tertiary center under the care of Dr. Yaniv Nelson. She was cardioverted in the emergency room. She was noted to be hypotensive and hypoxic with flash pulmonary edema. Amiodarone therapy was started today. Acute non-STEMI is thought to be related to demand ischemia. Please see Dr. Guidry Consults for the precise and detailed consultation and progress note. Patient needs further EP intervention and so she is been transferred to a tertiary center. Physical Exam Vital Signs: Temp Pulse Resp BP Pulse Ox 97.5 F 78 18 119/63 98 08/29/17 12:00 08/29/17 12:00 08/29/17 12:00 08/29/17 12:00 08/29/17 12:00 Intake & Output 08/28/17 08/29/17 08/30/17 06:59 06:59 06:59 Intake Total 203 Output Total 1300 Balance -1097 Weight 76.4 kg General appearance: PRESENT: no acute distress Head exam: PRESENT: atraumatic Ear exam: PRESENT: normal external ear exam Neck exam: ABSENT: carotid bruit, JVD, lymphadenopathy, thyromegaly GI/Abdominal exam: PRESENT: normal bowel sounds, soft. ABSENT: distended, guarding, mass, organolmegaly, rebound, tenderness Rectal exam: PRESENT: deferred Neurological exam: PRESENT: alert, awake, oriented to person, oriented to place , oriented to time, oriented to situation, CN II-XII grossly intact. ABSENT: motor sensory deficit Skin exam: PRESENT: dry, intact, warm. ABSENT: cyanosis, rash Results Laboratory Results: 08/29/17 05:33 08/29/17 05:33 08/29/17 08/29/17 05:33 05:33 WBC 7.8 RBC 4.07 Hgb 13.0 Hct 37.3 MCV 92 MCH 32.0 MCHC 35.0 RDW 13.7 Plt Count 184 Sodium 142.6 Potassium 3.8 Chloride 105 Carbon Dioxide 27 Anion Gap 11 BUN 15 Creatinine 0.63 Est GFR ( Amer) > 60 Est GFR (Non-Af Amer) > 60 Glucose 104 Calcium 9.0 Phosphorus 4.1 Magnesium 2.6 H D Total Bilirubin 0.5 AST 48 H ALT 27 Alkaline Phosphatase 52 Total Protein 6.7 Albumin 3.6 Triglycerides 71 Cholesterol 217.19 H LDL Cholesterol Direct 140 H VLDL Cholesterol 14.0 HDL Cholesterol 40 08/28/17 08/29/17 18:20 05:33 Troponin I 1.310 NT-Pro-B Natriuret Pep 4430 H Impressions: Chest X-Ray 08/28/17 14:45 IMPRESSION: Interstitial pulmonary edema Plan Discharge Plan: Transfer to Dr. Yaniv Nelson Time Spent: Greater than 30 Minutes
--- NOTE | 2017-08-29 13:04 | PDOC PROGRESS REPORT ---
Subjective Progress Note for:: 08/29/17 Subjective:: Further history was obtained. It seems Dr. Drew had referred patient to get a second opinion. For this reason, she was sent to [facility] and was scheduled to have a cardiac MRI but she could not get the cardiac MRI done because of some metal in her right lower extremity which was placed when she was a child. The [facility] told her that she could not have the MRI. Patient also did not see any other physician for second opinion. Patient seems to be doing better with significant. Pt is denying any chest arm or neck discomfort. Patient denying any PND, orthopnea. Patient denied any sustained palpitations, dizziness, syncope, near syncope. Patient denying any fever chills. Patient denying any other significant discomfort. Patient is maintaining sinus rhythm. Review of systems: Rest review of systems negative. Medications: Medications have been reviewed. Reason For Visit: AFIB RVR CHF EXACERBATION Physical Exam Vital Signs: Temp Pulse Resp BP Pulse Ox 97.5 F 78 18 119/63 98 08/29/17 12:00 08/29/17 12:00 08/29/17 12:00 08/29/17 12:00 08/29/17 12:00 Intake & Output 08/28/17 08/29/17 08/30/17 06:59 06:59 06:59 Intake Total 203 Output Total 1300 Balance -1097 Weight 76.4 kg Exam: GENERAL: well-nourished and in no acute distress. Alert and oriented x3 HEAD: Atraumatic, normocephalic. EYES: Pupils equal round and reactive to light, extraocular movements intact, sclera anicteric, conjunctiva are normal. ENT: TMs normal, nares patent, oropharynx clear without exudates. Moist mucous membranes. No oral ulcerations or bleeding gums noted NECK: supple without lymphadenopathy. Trachea is central. No cervical or axillary lymphadenopathy noted. Carotids are 2+, JVD WNL LUNGS: Respiration seems nonlabored, no significant accessory muscle action noted. Breath sounds clear to auscultation bilaterally and equal noted. No wheezes rales or rhonchi noted. No significant dullness noted on percussion. CHEST: Palpation of the chest wall shows no significant chest wall tenderness. HEART: [place] [employer], No PSH, 2/6 BLAIR aortic area and LSB, 1/6 cornelius systolic murmur mitral area, no rubs, no gallops. Positive S4 gallop ABDOMEN: Soft, no significant tenderness appreciated, normoactive bowel sounds. No guarding, no rebound. No rigidity noted . No masses appreciated. EXTREMITIES: Pedal pulses are 1-2+, no calf tenderness noted. No clubbing or cyanosis. negative pedal edema noted NEUROLOGICAL: Focused neurological exam showed no significant neurologic deficit. Normal speech, no focal weakness appreciated. PSYCH: Normal mood, normal affect. Judgment and insight within normal limits. SKIN: No significant ecchymosis, skin is noted to be warm. MUSCULOSKELETAL EXAM: No significant acute joint swelling noted. Results Laboratory Results: 08/29/17 05:33 08/29/17 05:33 08/29/17 08/29/17 05:33 05:33 WBC 7.8 RBC 4.07 Hgb 13.0 Hct 37.3 MCV 92 MCH 32.0 MCHC 35.0 RDW 13.7 Plt Count 184 Sodium 142.6 Potassium 3.8 Chloride 105 Carbon Dioxide 27 Anion Gap 11 BUN 15 Creatinine 0.63 Est GFR ( Amer) > 60 Est GFR (Non-Af Amer) > 60 Glucose 104 Calcium 9.0 Phosphorus 4.1 Magnesium 2.6 H D Total Bilirubin 0.5 AST 48 H ALT 27 Alkaline Phosphatase 52 Total Protein 6.7 Albumin 3.6 Triglycerides 71 Cholesterol 217.19 H LDL Cholesterol Direct 140 H VLDL Cholesterol 14.0 HDL Cholesterol 40 08/28/17 08/29/17 18:20 05:33 Troponin I 1.310 NT-Pro-B Natriuret Pep 4430 H EKG Comments: Sinus rhythm LVH with secondary ST-T wave changes Impressions: Chest X-Ray 08/28/17 14:45 IMPRESSION: Interstitial pulmonary edema Assessment & Plan - Diagnosis (1) Atrial fibrillation with RVR Is this a current diagnosis for this admission?: Yes (2) Hypoxia Is this a current diagnosis for this admission?: Yes (3) Pulmonary edema Qualifiers: Chronicity: acute Qualified Code(s): J81.0 - Acute pulmonary edema Is this a current diagnosis for this admission?: Yes (4) Non-STEMI (non-ST elevated myocardial infarction) Is this a current diagnosis for this admission?: Yes (5) Elevated troponin I level Is this a current diagnosis for this admission?: Yes (6) Hypertrophic cardiomyopathy Is this a current diagnosis for this admission?: Yes (7) Left ventricular outflow tract obstruction Is this a current diagnosis for this admission?: Yes - Notes Notes: Had a long discussion with patient, her daughter regarding further management. It seems definitely patient would need further evaluation which should include cardiac MRI, there may be a contraindication but alternative could be a cardiac CT angiogram. Patient could also have transesophageal echocardiogram. Patient would also benefit from further consultation by a carbon dioxide operator for possible ablation of atrial fibrillation, AV node and placement of pacemaker. This was all discussed with also Dr. Yaniv Nelson who kindly accepted the patient. Patient did have a 2D echocardiogram which showed significant LVOT obstruction. Gradient could not be well assessed but seems to be approximately 50-70 mmHg. May need further evaluation with either cardiac MRI/cardiac catheter/ transesophageal echocardiogram for further assessment. Also there was suspicion of ventricular septal defect on the echocardiogram. Atrial fibrillation with RVR: Patient presented with rapid heartbeat for 2 hours and subsequently decompensated needing to be cardioverted in the emergency room. She was noted to become hypotensive, hypoxic with flash pulmonary edema. Following cardioversion she was noted to be stable and admitted. Patient being anticoagulated. Patient placed on beta-shantel therapy. Today patient was placed on amiodarone therapy as it became clear that patient does not tolerate A. fib. Hypoxemia: Most likely related to pulmonary edema. Currently on oxygen supplementation. Improved. Pulmonary edema: Most likely related to atrial fibrillation in setting of diastolic dysfunction. Patient gives history of hypertrophy of the heart muscles. Non-STEMI: Most likely related to supply demand mismatch and possibly related to marked increased LVEDP. Currently chest pain-free. In fact patient never had any chest pain. At this point agree with Lovenox therapy. Will gradually optimize beta-shantel therapy. May consider Ranexa therapy. Elevated troponin I: Most likely related to supply demand mismatch. - Time Time with patient: Greater than 35 minutes - CODE STATUS was discussed, patient remains full code. Surrogate decision-maker unchanged. Multiple medical problems were addressed. More than 50% of the time spent coordinating care, discussing management plans with involved caregivers. Management plans discussed with involved personnels. Medical decision making was of moderate to high complexity, patient's has multiple comorbidities. Medications reviewed and adjusted accordingly: Yes
[2017-08-29 14:45] LABS: APPEARANCE,URINE CLEAR; BILIRUBIN,URINE NEGATIVE (NEGATIVE); COLOR,URINE STRAW; GLUCOSE, URINE NEGATIVE (NEGATIVE); KETONES,URINE NEGATIVE (NEGATIVE); LEUKOCYTE ESTERASE,URINE NEGATIVE (NEGATIVE); NITRITE,URINE NEGATIVE (NEGATIVE); PROTEIN,URINE NEGATIVE (NEGATIVE); URINE SPECIFIC GRAVITY 1.005; UROBILINOGEN,URINE NEGATIVE mg/dL (<2.0)
[2017-08-29] MEDS ORDERED: ATORVASTATIN CALCIUM 40 MG TABLET PO SCH (22:00)
[2017-08-29] MEDS: AMIODARONE HCL 200 MG TABLET PO SCH (22:14)
[2017-08-29] MEDS: METOPROLOL SUCCINATE 25 MG TAB.SR.24H PO SCH (22:14)
[2017-08-30] MEDS ORDERED: LEVOTHYROXINE SODIUM 0.1 MG TABLET PO SCH (06:00)
[2017-08-30] MEDS: AMIODARONE HCL 200 MG TABLET PO SCH (09:48)
[2017-08-30] MEDS: METOPROLOL SUCCINATE 25 MG TAB.SR.24H PO SCH (09:48)
[2017-08-30] MEDS: ASPIRIN 81 MG TABLET, ENT COATED PO SCH (09:48)
[2017-08-30] MEDS: ENOXAPARIN SODIUM INJ 80 MG/0.8 ML DISP.SYRIN SUBCUT SCH (09:49)
--- NOTE | 2017-08-30 10:59 | PDOC DISCHARGE SUMMARY ---
General - Admit/Disc Date/PCP Admission Date/Primary Care Provider: 08/28/17 17:33 Discharge Date: 08/30/17 - Discharge Diagnosis (1) Atrial fibrillation with RVR Is this a current diagnosis for this admission?: Yes (2) Elevated troponin I level Is this a current diagnosis for this admission?: Yes (3) Hypertrophic cardiomyopathy Is this a current diagnosis for this admission?: Yes (4) Hypothyroidism Is this a current diagnosis for this admission?: Yes (5) Hypoxia Is this a current diagnosis for this admission?: Yes (6) Left ventricular outflow tract obstruction Is this a current diagnosis for this admission?: Yes (7) Non-STEMI (non-ST elevated myocardial infarction) Is this a current diagnosis for this admission?: Yes (8) Pulmonary edema Is this a current diagnosis for this admission?: Yes - Additional Information Resuscitation Status: Full Code Discharge Diet: Cardiac Discharge Activity: Activity As Tolerated, Balance Activity w/Rest, Weigh Daily Prescriptions: Atorvastatin Calcium [Lipitor 40 mg Tablet] 40 mg PO QHS 30 Days #30 tablet Amiodarone HCl [Cordarone 200 mg Tablet] 400 mg PO Q12 30 Days #120 tablet Apixaban [Eliquis 5 mg Tablet] 5 mg PO Q12 30 Days #60 tablet Metoprolol Succinate [Toprol Xl 25 mg Tab.sr] 25 mg PO Q12 30 Days #60 tab.sr.24h Home Medications: Aspirin [Ecotrin 81 mg EC Tablet] 81 mg PO DAILY 08/28/17 Levothyroxine Sodium [Synthroid] 100 mcg PO Q6AM 08/28/17 Amiodarone HCl [Cordarone 200 mg Tablet] 400 mg PO Q12 30 Days #120 tablet 08/30 Apixaban [Eliquis 5 mg Tablet] 5 mg PO Q12 30 Days #60 tablet 08/30/17 Atorvastatin Calcium [Lipitor 40 mg Tablet] 40 mg PO QHS 30 Days #30 tablet Metoprolol Succinate [Toprol Xl 25 mg Tab.sr] 25 mg PO Q12 30 Days #60 tab.sr.24h 08/30/17 History of Present Illness Patient complains of: Patient presented in Atrial fibrillation. Her heart rate was found to be in the 130s-180s by EMS and she received 10 mg of. In the emergency room chest x-ray showed pulmonary edema and she was given 40 mg of IV Lasix. She subsequently converted to sinus rhythm. History of Present Illness: SARABJIT HARTMANN is a 72 year old female Hospital Course Hospital Course: This 72-year-old female was admitted with newly discovered atrial fibrillation as well as a history of hypothyroidism. She was found to be with a heart rate of 130s-180s by EMS and was treated with 10 mg of IV Cardizem. She did spontaneously convert it appears shortly after that with no further medications. She was also thought to be in decompensated CHF and received Lasix for diuresis. She was seen by agricultural mechanic and patient does of metoprolol was adjusted. Patient did have an echocardiogram done today. It appears she has a moderate concentric left ventricular hypertrophy with significant outflow obstruction. Echo also reveals a small ventricular septal defect with left to right shunt flow. There is also mild to moderate pulmonary hypertension and tricuspid regurgitation. After further evaluation by the agricultural mechanic it is felt that patient will benefit from electrophysiology study and initial plans was to be transferred from here to [facility] but she is being discharged home now for follow up. Troponins have also been elevated with a peak of 1.3. BNP is also elevated at 4430. It is felt the patient will benefit most from a transfer to a tertiary center however she could not be immediately transferred so has decided to go home and follow up as outpatient She was cardioverted in the emergency room. She was noted to be hypotensive and hypoxic with flash pulmonary edema. Amiodarone therapy was started today. Acute non-STEMI is thought to be related to demand ischemia. Please see Dr. Guidry Consults for the precise and detailed consultation and progress note. Patient needs further EP intervention and this will be arranged as outpatient Physical Exam Vital Signs: Temp Pulse Resp BP Pulse Ox 97.8 F 68 16 134/60 H 96 08/30/17 09:34 08/30/17 09:34 08/30/17 09:34 08/30/17 09:34 08/30/17 09:34 Intake & Output 08/29/17 08/30/17 08/31/17 06:59 06:59 06:59 Intake Total 203 2325 Output Total 1300 Balance -1097 2325 Weight 76.4 kg 72.3 kg General appearance: PRESENT: no acute distress, well-developed, well-nourished Head exam: PRESENT: atraumatic, normocephalic Eye exam: PRESENT: conjunctiva pink, EOMI, PERRLA. ABSENT: scleral icterus Ear exam: PRESENT: normal external ear exam Mouth exam: PRESENT: moist, tongue midline Neck exam: ABSENT: carotid bruit, JVD, lymphadenopathy, thyromegaly Respiratory exam: PRESENT: clear to auscultation linus. ABSENT: rales, rhonchi, wheezes Cardiovascular exam: PRESENT: RRR. ABSENT: diastolic murmur, rubs, systolic murmur Pulses: PRESENT: normal dorsalis pedis pul Vascular exam: PRESENT: normal capillary refill GI/Abdominal exam: PRESENT: normal bowel sounds, soft. ABSENT: distended, guarding, mass, organolmegaly, rebound, tenderness Rectal exam: PRESENT: deferred Extremities exam: PRESENT: full ROM. ABSENT: calf tenderness, clubbing, pedal edema Neurological exam: PRESENT: alert, awake, oriented to person, oriented to place , oriented to time, oriented to situation, CN II-XII grossly intact. ABSENT: motor sensory deficit Psychiatric exam: PRESENT: appropriate affect, normal mood. ABSENT: homicidal ideation, suicidal ideation Skin exam: PRESENT: dry, intact, warm. ABSENT: cyanosis, rash Results Laboratory Results: 08/29/17 05:33 08/29/17 05:33 08/29/17 08/30/17 12:55 08:35 Urine Color STRAW Urine Appearance CLEAR Urine pH 7.0 Ur Specific [place] 1.005 Urine Protein NEGATIVE Urine Glucose (UA) NEGATIVE Urine Ketones NEGATIVE Urine Blood NEGATIVE Urine Nitrite NEGATIVE Ur Leukocyte Esterase NEGATIVE Urine WBC (Auto) 0 Stool Occult Blood NEGATIVE 08/28/17 08/29/17 18:20 05:33 Troponin I 1.310 NT-Pro-B Natriuret Pep 4430 H Impressions: Chest X-Ray 08/28/17 14:45 IMPRESSION: Interstitial pulmonary edema Qualifiers - * PATIENT BEING DISCHARGED WITH ANY OF THE FOLLOWING DIAGNOSIS: No Plan Time Spent: Greater than 30 Minutes
[2017-08-30 11:31] VITALS: BP 119/63
--- NOTE | 2017-08-30 13:23 | PDOC PROGRESS REPORT ---
Subjective Progress Note for:: 08/30/17 Subjective:: Patient on waiting list for transfer to [facility] under Dr. Yaniv Nelson's care however patient demanded to be discharged. She did not want to wait for personal reasons. Patient prefers to schedule a consultation and further evaluation as an outpatient. Patient claims to be doing very well. In fact she claims that she has walked in the hallway and had no problems. Patient was informed that she is at risk of sudden decompensation. She understands the risk and wishes to be discharged. Patient is maintaining sinus rhythm. Review of systems: Rest review of systems negative. Medications: Medications have been reviewed. Reason For Visit: AFIB RVR CHF EXACERBATION Physical Exam Vital Signs: Temp Pulse Resp BP Pulse Ox 98.1 F 63 16 119/63 98 08/30/17 11:29 08/30/17 11:29 08/30/17 11:29 08/30/17 11:29 08/30/17 11:29 Intake & Output 08/29/17 08/30/17 08/31/17 06:59 06:59 06:59 Intake Total 203 2325 300 Output Total 1300 Balance -1097 2325 300 Weight 76.4 kg 72.3 kg Exam: GENERAL: well-nourished and in no acute distress. Alert and oriented x3 HEAD: Atraumatic, normocephalic. EYES: Pupils equal round and reactive to light, extraocular movements intact, sclera anicteric, conjunctiva are normal. ENT: TMs normal, nares patent, oropharynx clear without exudates. Moist mucous membranes. No oral ulcerations or bleeding gums noted NECK: supple without lymphadenopathy. Trachea is central. No cervical or axillary lymphadenopathy noted. Carotids are 2+, JVD WNL LUNGS: Respiration seems nonlabored, no significant accessory muscle action noted. Breath sounds clear to auscultation bilaterally and equal noted. No wheezes rales or rhonchi noted. No significant dullness noted on percussion. CHEST: Palpation of the chest wall shows no significant chest wall tenderness. HEART: [place] WHEEL [employer]TER, No PSH, 2-3/6 BLAIR aortic area, 1/6 cornelius systolic murmur mitral area, no rubs, no gallops. ABDOMEN: Soft, no significant tenderness appreciated, normoactive bowel sounds. No guarding, no rebound. No rigidity noted . No masses appreciated. EXTREMITIES: Pedal pulses are 1-2+, no calf tenderness noted. No clubbing or cyanosis. negative pedal edema noted NEUROLOGICAL: Focused neurological exam showed no significant neurologic deficit. Normal speech, no focal weakness appreciated. PSYCH: Normal mood, normal affect. Judgment and insight within normal limits. SKIN: No significant ecchymosis, skin is noted to be warm. MUSCULOSKELETAL EXAM: No significant acute joint swelling noted. Results Laboratory Results: 08/29/17 05:33 08/29/17 05:33 08/29/17 08/30/17 12:55 08:35 Urine Color STRAW Urine Appearance CLEAR Urine pH 7.0 Ur Specific [place] 1.005 Urine Protein NEGATIVE Urine Glucose (UA) NEGATIVE Urine Ketones NEGATIVE Urine Blood NEGATIVE Urine Nitrite NEGATIVE Ur Leukocyte Esterase NEGATIVE Urine WBC (Auto) 0 Stool Occult Blood NEGATIVE 08/28/17 08/29/17 18:20 05:33 Troponin I 1.310 NT-Pro-B Natriuret Pep 4430 H EKG Comments: Shows sinus rhythm without any sustained tachycardia or bradycardia over the last 24 hours. Impressions: Chest X-Ray 08/28/17 14:45 IMPRESSION: Interstitial pulmonary edema Assessment & Plan - Diagnosis (1) Atrial fibrillation with RVR Is this a current diagnosis for this admission?: Yes (2) Hypoxia Is this a current diagnosis for this admission?: Yes (3) Pulmonary edema Qualifiers: Chronicity: acute Qualified Code(s): J81.0 - Acute pulmonary edema Is this a current diagnosis for this admission?: Yes (4) Non-STEMI (non-ST elevated myocardial infarction) Is this a current diagnosis for this admission?: Yes (5) Elevated troponin I level Is this a current diagnosis for this admission?: Yes (6) Hypertrophic cardiomyopathy Is this a current diagnosis for this admission?: Yes (7) Left ventricular outflow tract obstruction Is this a current diagnosis for this admission?: Yes - Notes Notes: Atrial fibrillation with RVR: Patient is status post cardioversion and now on rate control and chronic anticoagulation is strategy. Patient is maintaining sinus rhythm. Patient to continue amiodarone therapy. Hypoxemia: Most likely related to pulmonary edema. Improved. Pulmonary edema: Most likely related to atrial fibrillation in setting of diastolic dysfunction. Patient gives history of hypertrophy of the heart muscles. Non-STEMI: Most likely related to supply demand mismatch and possibly related to marked increased LVEDP. Currently chest pain-free. In fact patient never had any chest pain. At this point agree with Lovenox therapy. Will gradually optimize beta-shantel therapy. May consider Ranexa therapy. Elevated troponin I: Most likely related to supply demand mismatch. Hypertrophic cardiomyopathy with LVOT obstruction: Patient to have cardiac MRI as an outpatient scheduled. Probable small ventricular septal defect: [place] to be present based on echocardiogram. Patient will benefit from endocarditis prophylaxis. - Time Time with patient: Greater than 35 minutes - CODE STATUS was discussed, patient remains full code. Surrogate decision-maker patient's . Multiple medical problems were addressed. More than 50% of the time spent coordinating care, discussing management plans with involved caregivers. Management plans discussed with involved personnels. Medical decision making was of moderate to high complexity, patient's has multiple comorbidities. Medications reviewed and adjusted accordingly: Yes
--- NOTE | 2017-08-30 16:12 | PDOC PROGRESS REPORT ---
Subjective Progress Note for:: 08/29/17 Reason For Visit: AFIB RVR CHF EXACERBATION Physical Exam Vital Signs: Temp Pulse Resp BP Pulse Ox 97.3 F 80 18 111/60 98 08/29/17 15:17 08/29/17 15:17 08/29/17 15:17 08/29/17 15:17 08/29/17 15:17 Intake & Output 08/28/17 08/29/17 08/30/17 06:59 06:59 06:59 Intake Total 203 1660 Output Total 1300 Balance -1097 1660 Weight 76.4 kg General appearance: PRESENT: no acute distress, well-developed, well-nourished Head exam: PRESENT: atraumatic, normocephalic Eye exam: PRESENT: conjunctiva pink, EOMI, PERRLA. ABSENT: scleral icterus Ear exam: PRESENT: normal external ear exam Mouth exam: PRESENT: moist, tongue midline Neck exam: ABSENT: carotid bruit, JVD, lymphadenopathy, thyromegaly Respiratory exam: PRESENT: clear to auscultation linus. ABSENT: rales, rhonchi, wheezes Cardiovascular exam: PRESENT: RRR, systolic murmur - 3/6. ABSENT: diastolic murmur, rubs Pulses: PRESENT: normal dorsalis pedis pul Vascular exam: PRESENT: normal capillary refill GI/Abdominal exam: PRESENT: normal bowel sounds, soft. ABSENT: distended, guarding, mass, organolmegaly, rebound, tenderness Rectal exam: PRESENT: deferred Extremities exam: PRESENT: full ROM. ABSENT: calf tenderness, clubbing, pedal edema Neurological exam: PRESENT: alert, awake, oriented to person, oriented to place , oriented to time, oriented to situation, CN II-XII grossly intact. ABSENT: motor sensory deficit Psychiatric exam: PRESENT: appropriate affect, normal mood. ABSENT: homicidal ideation, suicidal ideation Skin exam: PRESENT: dry, intact, warm. ABSENT: cyanosis, rash Results Laboratory Results: 08/29/17 05:33 08/29/17 05:33 08/29/17 08/29/17 08/29/17 05:33 05:33 12:55 WBC 7.8 RBC 4.07 Hgb 13.0 Hct 37.3 MCV 92 MCH 32.0 MCHC 35.0 RDW 13.7 Plt Count 184 Sodium 142.6 Potassium 3.8 Chloride 105 Carbon Dioxide 27 Anion Gap 11 BUN 15 Creatinine 0.63 Est GFR ( Amer) > 60 Est GFR (Non-Af Amer) > 60 Glucose 104 Calcium 9.0 Phosphorus 4.1 Magnesium 2.6 H D Total Bilirubin 0.5 AST 48 H ALT 27 Alkaline Phosphatase 52 Total Protein 6.7 Albumin 3.6 Triglycerides 71 Cholesterol 217.19 H LDL Cholesterol Direct 140 H VLDL Cholesterol 14.0 HDL Cholesterol 40 Urine Color STRAW Urine Appearance CLEAR Urine pH 7.0 Ur Specific [place] 1.005 Urine Protein NEGATIVE Urine Glucose (UA) NEGATIVE Urine Ketones NEGATIVE Urine Blood NEGATIVE Urine Nitrite NEGATIVE Ur Leukocyte Esterase NEGATIVE Urine WBC (Auto) 0 08/28/17 08/29/17 18:20 05:33 Troponin I 1.310 NT-Pro-B Natriuret Pep 4430 H Impressions: Chest X-Ray 08/28/17 14:45 IMPRESSION: Interstitial pulmonary edema Assessment & Plan - Diagnosis (1) Atrial fibrillation with RVR Is this a current diagnosis for this admission?: Yes (2) Elevated troponin I level Is this a current diagnosis for this admission?: Yes (3) Hypertrophic cardiomyopathy Is this a current diagnosis for this admission?: Yes (4) Hypothyroidism Is this a current diagnosis for this admission?: Yes (5) Hypoxia Is this a current diagnosis for this admission?: Yes (6) Left ventricular outflow tract obstruction Is this a current diagnosis for this admission?: Yes (7) Non-STEMI (non-ST elevated myocardial infarction) Is this a current diagnosis for this admission?: Yes (8) Pulmonary edema Qualifiers: Chronicity: acute Qualified Code(s): J81.0 - Acute pulmonary edema Is this a current diagnosis for this admission?: Yes - Time Time Spent with patient: 15-24 minutes Medications reviewed and adjusted accordingly: Yes Anticipated discharge: [facility] Within: within 24 hours - Inpatient Certification Based on my medical assessment, after consideration of the patient's comorbidities, presenting symptoms, or acuity I expect that the services needed warrant INPATIENT care.: Yes Medical Necessity: Need For Continuous Telemetry Monitoring - Plan Summary Plan Summary: Plan is to transfer to [facility]
== END 2017-08-30 12:05 | disposition home or self-care (01) | DRG 280 ==
LOC: ER 14:43 → EH 17:20 → UNDOADMIN 17:20 → EH 17:33 → 3S 23:44
PROVIDERS: ADMIT Internal Medicine; ATTEND Internal Medicine
PROC: 5A2204Z Restoration of Cardiac Rhythm, Single (ICD-10-PCS; principal; 2017-08-28)
PROC: 3E0F73Z Introduction of Anti-inflammatory into Respiratory Tract, Via Natural or Artificial Opening (ICD-10-PCS; 2017-08-28)
DX: I48.91 Unspecified atrial fibrillation (principal); I50.31 Acute diastolic (congestive) heart failure; I21.A1 Myocardial infarction type 2; I42.2 Other hypertrophic cardiomyopathy; E03.9 Hypothyroidism, unspecified; R09.02 Hypoxemia; I27.20 Pulmonary hypertension, unspecified; I07.1 Rheumatic tricuspid insufficiency; D64.9 Anemia, unspecified; Z79.899 Other long term (current) drug therapy; Z82.49 Family history of ischemic heart disease and other diseases of the circulatory system; Z80.9 Family history of malignant neoplasm, unspecified
CPT/HCPCS: 36415; 71045; 80053; 80061; 81001; 82272; 82550; 82553; 83036; 83735; 83880; 84100; 84439; 84443; 84481; 84484; 85025; 85027; 85610; 93005; 93010; 93306; 96374; 99285; 99152; J1650; J1940; J2250; J3010; J3475

== ENCOUNTER → 2017-12-07 | Outpatient (CLI) | payer MEDICARE, BC ==
[2017-12-07 13:58] LABS: FREE T3 2.66 pg/mL (2.77-5.27); FREE T4 (FREE THYROXINE) 2.19 ng/dL (0.78-2.19)
[2017-12-07 14:11] LABS: THYROID STIMULATING HORMONE 1.66 uIU/mL (0.47-4.68)
== END ==
LOC: OD 12:17
PROVIDERS: ATTEND Student in an Organized Health Care Education/Training Program
DX: E03.9 Hypothyroidism, unspecified (principal)
CPT/HCPCS: 36415; 84439; 84443; 84481

== ENCOUNTER 2019-03-18 07:10 | Day surgery (SDC) | payer MEDICARE, BC ==
[2019-03-18] MEDS ORDERED: NALOXONE HCL INJ/PF 0.4 MG/1 ML SDV ONE (07:35)
[2019-03-18] MEDS ORDERED: FLUMAZENIL INJ 0.5 MG/5 ML VIAL ONE (07:35)
[2019-03-18] MEDS ORDERED: EPINEPHRINE INJ 1 MG/10 ML DISP.SYRIN ONE (07:35)
[2019-03-18] MEDS ORDERED: ONDANSETRON HCL INJ/PF 4 MG/2 ML SDV ONE (07:35)
[2019-03-18] MEDS ORDERED: DIPHENHYDRAMINE HCL 50 MG/ML VIAL ONE (07:35)
[2019-03-18] MEDS ORDERED: GLUCAGON,HUMAN RECOMB 1 MG INJ ONE (07:36)
[2019-03-18] MEDS: MIDAZOLAM 2 MG/2 ML INJ ONE ×3 (07:53→08:12)
[2019-03-18] MEDS: FENTANYL CITRATE INJ/PF 100 MCG/2 ML AMPUL ONE ×2 (07:53→08:03)
--- NOTE | 2019-03-18 08:41 | Operative Report ---
Nonrecallable Operative Report DATE OF SURGERY: 03/18/19 PREOPERATIVE DIAGNOSIS: Screening colonoscopy history of cecal polyp POSTOPERATIVE DIAGNOSIS: Cecal lesion, diverticulosis OPERATION: Colonoscopy with biopsy of the cecal lesion SURGEON: WELLINGTON KAUFFMAN ANESTHESIA: Moderate Sedation TISSUE REMOVED OR ALTERED: Biopsy cecal lesion COMPLICATIONS: None ESTIMATED BLOOD LOSS: 0 INTRAOPERATIVE FINDINGS: Smooth cecal lesion consistent with possible sub- mucosal lipoma PROCEDURE: Patient brought to the endoscopy suite awake alert stable condition placed on the endoscopy table and was given IV sedation she was placed in a left lateral decubitus position after appropriate timeout site verification the procedure commenced. The Olympus colonoscope was passed into the rectum and traversed the initial angulation of the rectum to the sigmoid colon we noted moderate to severe diverticulosis with no evidence of stricture scope was passed up the descending colon to the splenic flexure transverse colon hepatic flexure and we identified the descending colon we manipulated the scope down towards the cecum upon reaching the cecum there was a smooth swelling possible submucosal lesion at the medial aspect of the cecum just above the ileocecal valve this was biopsied we then slowly withdrew the scope up the ascending colon hepatic flexure transverse colon splenic flexure and descending colon there is no other evidence of mucosal abnormalities throughout the entire length of the colon however there was moderate to severe diverticulosis in the sigmoid colon. Scope was withdrawn. Findings moderate to severe diverticulosis Cecal lesion consistent with a possible submucosal lipoma this was biopsied Patient tolerated procedure well will follow-up in surgical clinic in 1 to 2 weeks Follow-up colonoscopy depending on biopsy results
--- NOTE | 2019-03-18 08:42 | Discharge Summary ---
Discharge Summary (SDC) - Discharge Final Diagnosis: Colonoscopy Date of Surgery: 03/18/19 Discharge Date: 03/18/19 Condition: Good Referrals: IRINEO HARTMANN, [employer]AL [employer] [Primary Care Provider] - Discharge Diet: As Tolerated Discharge Activity: Activity As Tolerated Report the Following to Your Physician Immediately: Increase in Pain - Follow-up in surgical clinic in 10 to 14 days
[2019-03-18 10:01] VITALS: BP 142/67
== END 2019-03-18 11:19 | disposition home or self-care (01) ==
LOC: END 07:10
PROVIDERS: ATTEND Surgery
DX: Z12.11 Encounter for screening for malignant neoplasm of colon (principal); K57.30 Diverticulosis of large intestine without perforation or abscess without bleeding; K63.9 Disease of intestine, unspecified; Z86.010 Personal history of colon polyps; E03.9 Hypothyroidism, unspecified; I48.91 Unspecified atrial fibrillation; Z79.01 Long term (current) use of anticoagulants; Z79.899 Other long term (current) drug therapy
CPT/HCPCS: 45380; 88305 ×2; J2250; J3010; J2405; J0171; J1200; J1610; J2310; J3490

== ENCOUNTER → 2019-06-24 | Outpatient (CLI) | payer MEDICARE, BC ==
[2019-06-24 14:51] LABS: ABSOLUTE BASOPHILS # (AUTO) 0.1 10^3/uL (0.0-0.2); ABSOLUTE LYMPHOCYTES (AUTO) 0.7 10^3/uL (0.5-4.7); ABSOLUTE NEUT (AUTO) 10.3 10^3/uL (1.7-8.2); BASOPHILS % (AUTO) 0.7 % (0-2); EOSINOPHILS % (AUTO) 0.2 % (0-6); HEMOGLOBIN 12.6 g/dL (12.0-15.5); LYMPHOCYTES % (AUTO) 5.8 % (13-45); MEAN CORPUSCULAR HEMOGLOBIN 33.2 pg (27.0-33.4); MEAN CORPUSCULAR HGB CONC 34.9 g/dL (32.0-36.0); MEAN CORPUSCULAR VOLUME 95 fl (80-97); MONOCYTES % (AUTO) 8.6 % (3-13); PLATELET COUNT 338 10^3/uL (150-450); RED BLOOD COUNT 3.78 10^6/uL (3.72-5.28); RED CELL DISTRIBUTION WIDTH 13.4 % (11.5-14.0); SEGMENTED NEUTROPHILS % (AUTO) 84.7 % (42-78); TOTAL CELLS COUNTED % (AUTO) 100 %; WHITE BLOOD COUNT 12.2 10^3/uL (4.0-10.5)
[2019-06-24 15:44] LABS: ERYTHROCYTE SEDIMENTATION RATE 89 mm/hr (0-30)
== END ==
LOC: OD 14:21
PROVIDERS: ATTEND Family Medicine
DX: M46.1 Sacroiliitis, not elsewhere classified (principal)
CPT/HCPCS: 36415; 85025; 85652; 86141